=== PATIENT | female | born 1970 | race Caucasian/White ===

== ENCOUNTER 2022-07-19 07:40 | Outpatient (CLI) | payer OTHER, SELFPAY | END 2022-07-19 07:41 | disposition home or self-care (01) | LOC: FRMREF 07-23 13:53 | PROVIDERS: PCP Family Medicine; Visit Provider Family Medicine | DX: R30.0 Dysuria (principal); N39.0 Urinary tract infection, site not specified | CPT/HCPCS: 87086; 87186 ==

== ENCOUNTER 2022-11-08 08:59 | Outpatient (CLI) | payer OTHER, SELFPAY ==
--- NOTE | 2022-11-08 09:15 | CRLHL7_ITS ---
For Patients: As a result of the Century Cures Act, medical imaging exams and procedure reports are released immediately into your electronic medical record. You may view this report before your referring provider. If you have questions, please contact your health care provider. BILATERAL SCREENING MAMMOGRAM WITH COMPUTER-AIDED DETECTION AND TOMOSYNTHESIS TECHNIQUE: CC and MLO views were obtained. These mammographic images have been obtained using full-field digital technique. These mammographic images were interpreted with the benefit of computer-aided detection. Breast Tomosynthesis was used in this interpretation. COMPARISON FILM: 10/09/21, 08/29/20, 02/20/19. FINDINGS: The breasts are heterogeneously dense, which may obscure small masses IMPRESSION: There is no radiographic evidence for malignancy. ASSESSMENT: BI-RADS Category 1: Negative RECOMMENDATION: Routine screening mammogram in 1 year. A lay language report of this examination will be provided to the patient. Daniel Lind M.D. Diagnostic Radiologist [email or web address] ALLIE/Dictated by: Daniel Lind MD @ 11/08/2022 11:51:00 AM (Electronically Signed)
== END 2022-11-08 09:00 | disposition home or self-care (01) ==
LOC: MAMMO 08:59
PROVIDERS: PCP Family Medicine; Visit Provider Family Medicine
DX: Z12.31 Encounter for screening mammogram for malignant neoplasm of breast (principal); R92.2 Inconclusive mammogram
CPT/HCPCS: 77063; 77067

== ENCOUNTER 2023-11-18 09:01 | Outpatient (CLI) | payer OTHER, SELFPAY ==
--- NOTE | 2023-11-18 09:15 | CRLHL7_ITS ---
For Patients: As a result of the Century Cures Act, medical imaging exams and procedure reports are released immediately into your electronic medical record. You may view this report before your referring provider. If you have questions, please contact your health care provider. BILATERAL SCREENING MAMMOGRAM WITH COMPUTER-AIDED DETECTION AND TOMOSYNTHESIS TECHNIQUE: CC and MLO views were obtained. These mammographic images have been obtained using full-field digital technique. These mammographic images were interpreted with the benefit of computer-aided detection. Breast Tomosynthesis was used in this interpretation. COMPARISON FILM: 11/08/2022, 10/09/2021, 08/29/2020. FINDINGS: There are scattered areas of fibroglandular density. IMPRESSION: There is no radiographic evidence for malignancy. ASSESSMENT: BI-RADS Category 2: Benign RECOMMENDATION: Routine screening mammogram in 1 year. A lay language report of this examination will be provided to the patient. Daniel Lind M.D. Diagnostic Radiologist [email or web address] SP/Dictated by: Daniel Lind MD @ 11/18/2023 11:57:00 AM (Electronically Signed)
== END 2023-11-18 09:02 | disposition home or self-care (01) ==
LOC: MAMMO 09:04
PROVIDERS: PCP Family Medicine; Visit Provider Family Medicine
DX: Z12.31 Encounter for screening mammogram for malignant neoplasm of breast (principal)
CPT/HCPCS: 77063; 77067

== ENCOUNTER 2024-04-18 08:30 | Outpatient (CLI) | payer OTHER, SELFPAY | END 2024-04-18 08:31 | disposition home or self-care (01) | LOC: NFLDREF 04-20 11:25 | PROVIDERS: PCP Physician Assistant Medical; Referring Provider Physician Assistant Medical; Visit Provider Physician Assistant Medical | DX: Z00.00 Encounter for general adult medical examination without abnormal findings (principal); Z13.29 Encounter for screening for other suspected endocrine disorder; Z13.6 Encounter for screening for cardiovascular disorders; Z13.1 Encounter for screening for diabetes mellitus; Z13.9 Encounter for screening, unspecified | CPT/HCPCS: 80053; 80061; 84443 ==

== ENCOUNTER 2024-05-10 09:55 | Outpatient (CLI) | payer OTHER, SELFPAY ==
--- NOTE | 2024-05-10 10:21 | W.ANESCHARGE ---
Anesthesia Charges Start Date/Time Anesthesia Start Date: 05/10/24 Anesthesia Start Time: 10:42 Stop Date/Time Anesthesia Stop Date: 05/10/24 Anesthesia Stop Time: 11:30
--- NOTE | 2024-05-10 11:33 | W.ANESCHARGE ---
Anesthesia Charges Start Date/Time Anesthesia Start Date: 05/10/24 Anesthesia Start Time: 10:42 Stop Date/Time Anesthesia Stop Date: 05/10/24 Anesthesia Stop Time: 11:30
== END 2024-05-10 09:56 | disposition home or self-care (01) ==
LOC: OP CLINIC 09:55
PROVIDERS: PCP Physician Assistant Medical; Visit Provider Surgery
DX: Z12.11 Encounter for screening for malignant neoplasm of colon (principal); K63.5 Polyp of colon; Z83.719 Family history of colon polyps, unspecified
CPT/HCPCS: 00811; 45381; 45385; 88305; J2704

== ENCOUNTER 2024-11-22 09:45 | Outpatient (CLI) | payer OTHER, SELFPAY ==
--- NOTE | 2024-11-22 10:15 | CRLHL7_ITS ---
For Patients: As a result of the Cures Act, medical imaging exams and procedure reports are released immediately into your electronic medical record. You may view this report before your referring provider. If you have questions, please contact your health care provider. BILATERAL SCREENING MAMMOGRAM WITH COMPUTER-AIDED DETECTION AND TOMOSYNTHESIS TECHNIQUE: CC and MLO views were obtained. These mammographic images have been obtained using full-field digital technique. These mammographic images were interpreted with the benefit of computer-aided detection. Breast Tomosynthesis was used in this interpretation. COMPARISON FILM: 11/18/23, 10/09/21, 08/29/20. FINDINGS: There are scattered areas of fibroglandular density IMPRESSION: There is no radiographic evidence for malignancy. ASSESSMENT: BI-RADS Category 2: Benign RECOMMENDATION: Routine screening mammogram in 1 year. A lay language report of this examination will be provided to the patient. Daniel Lind M.D. Diagnostic Radiologist [email or web address] RENETTA/omkar / bM/Dictated by: Daniel Lind MD @ 11/22/2024 11:17:00 AM (Electronically Signed)
== END 2024-11-22 09:46 | disposition home or self-care (01) ==
PROVIDERS: PCP Nurse Practitioner; Visit Provider Physician Assistant Medical
DX: Z12.31 Encounter for screening mammogram for malignant neoplasm of breast (principal)
CPT/HCPCS: 77063; 77067

== ENCOUNTER 2025-04-11 08:35 | Outpatient (CLI) | payer OTHER, SELFPAY ==
--- OUTSIDE RECORDS SUMMARY | 2025-03-11 09:15 | XMS_ITS ---
Author Organization [facility] Address [address] [place] [address] Care Team Providers Care Road Consultant Name Role Phone None, No PCP Primary Care Provider Jeronimo Ferguson [phone] Results Component Value Reference Range Notes FSH (IH) Reviewed date:03/12/2025 01:27:51 PM Interpretation: Performing Lab: Notes/Report: Access 2 ([id number]) [facility] hFSH 47.7 1.8 to 22.5 mIU/mL H Testosterone, Total (IH) Reviewed date:03/12/2025 01:27:51 PM Interpretation: Performing Lab: Notes/Report: Access 2 ([id number]) [facility] Testo 59 0-75 ng/dL Sensitive Estradiol (IH) Reviewed date:03/12/2025 01:27:51 PM Interpretation: Performing Lab: Notes/Report: Access 2 ([id number]) [facility] SNSE2 33 20 to 433 pg/mL REASON FOR VISIT IH HRT Labs Medications Medication SIG (Take, Route, Fr equency, Duration) Notes Start Date End Date Status Magnesium Active Melatonin 5 MG 1 tablet in the even ing Orally Once a day Active Collagen Active Estradiol 1 MG 1 tablet Orally Once a day for 90 days 02/01/2025 Active Progesterone 100 MG 1 capsule at bedtime Orally Once a day for 90 days 02/01/2025 Active Encounters Encounter Location Date Provider Diagnosis [facility] [address] [place] [phone] 03/11/2025 Jeronimo Steven Menopausal and femal e climacteric states N95.1 Assessments Encounter Date Diagnosis (ICD Code) Assessment Notes Treatment Notes Treatment Clinical Notes Section Notes 03/11/2025 Menopausal and female climacteric states (ICD-10 - N95.1) Plan Of Treatment Next Appt Details Provider Name:Jeronimo Steven, 09/26/2025 02:15:00 PM, [address], [place], [address], Provider Name:Jeronimo Steven, 10/03/2025 03:00:00 PM, [address] [place], [address], Progress Notes * Maria Antonia GUPTA DDOB: [birth year] (54 yo F)Acc No.[id number]:03/11/2025 Patient: Payton JOHNMaria Antonia Gulshan Provider: IVONE Metzger :1970 A ge:54 Y S ex:Female Date:03/11/2025 Address:[address] [place], [place] [id number] Pcp:No PCP None Subjective: * Chief Complaints: * 1 . IH HRT Labs. * Medical History: * Medications: T aking Magnesium , Taking Melatonin 5 MG Tablet 1 tablet in the evening Orally Once a day , Taking Collagen , Taking Estradiol 1 MG Tablet 1 tablet Orally Once a day , Taking Progesterone 100 MG Capsule 1 capsule at bedtime Orally Once a day Objective: * Vitals: Assessment: * Assessment: 1. M enopausal and female climacteric states - N95.1 (Primary) Plan: * Treatment: Value Reference Range T estosterone, Total (IH) 59 0-75 - ng/dL * Here are your lab results fo r your upcoming visit. See you then. Jeronimo Steven 03/12/2025 01:27:48 PM CDT > ?LAB: Sensitive Estradiol (IH) (Collection Date & Time - 03/12/2025 01:03 PM)* Value Reference Range S NSE2 33 20 to 433 - pg/mL * Here are your lab results fo r your upcoming visit. See you then. Jeronimo Steven 03/12/2025 01:27:48 PM CDT > ?LAB: FSH (IH) (Collection Date & Time - 03/12/2025 01:07 PM)* Value Reference Range h FSH 47.7 A 1.8 to 22.5 - mIU/mL * Here are your lab results fo r your upcoming visit. See you then. Jeronimo Steven 03/12/2025 01:27:48 PM CDT > * Procedure Codes: 8 2670 ASSAY OF ESTRADIOL - IH, 00426 GONADOTROPIN (FSH) - IH, 70945 ASSAY OF TOTAL TESTOSTERONE - IH, 72176 VENIPUNCT, ROUTINE* * Images: Billing Information: * Visit Code: * Procedure Codes: 25411 ASSAY OF ESTRADIOL - IH. 75904 GONADOTROPIN (FSH) - IH. 15102 ASSAY OF TOTAL TESTOSTERONE - IH. 93696 VENIPUNCT, ROUTINE*. * Sign off status: Completed Addendum: * true * Provider: IVONE Metzger Date: 0 03/11/2025 Generated for Bob pedro/Callie/Luca on: 0 04/12/2025 12:45 AM CDT
--- OUTSIDE RECORDS SUMMARY | 2025-03-21 04:45 | XMS_ITS ---
Author Organization [facility] Address [address] [place] [address] Care Team Providers Care Electromedical Service Engineer Name Role Phone None, No PCP Primary Care Provider Jeronimo Ferguson Unavailable [phone] Allergies No Known Allergies REASON FOR VISIT F/U LABS, LABS: estradiol 59, fsh 47.7, testosterone 33, HOW ARE YOU FEELING? no concerns - go overlabs only, KD,RESPITE COORDINATOR, * Medications Medication SIG (Take, Route, Frequency, Duration) Notes Start Date End Date Status Testosterone troches/lozenges at 4mg/0.5 lozenge SL daily in AM Active Melatonin 5 MG 1 tablet in the evening Orally Once a day Active Collagen Active Progesterone 200 MG 1 capsule at bedtime Orally Once a day for 90 days HOLD until pt. calls for fill of new dose 02/01/2025 Active Estradiol 2 MG 1 tablet Orally Once a day for 90 days HOLD until pt. calls for fill of new dose 02/01/2025 Active Magnesium Active Social History Tobacco Use: Social History Observation Description Date Details (start date - stop date) Never Smoker NA - NA Tobacco Control (Standard) Question Answer Notes Tobacco use: Nonsmoker Encounters Encounter Location Date Provider Diagnosis [facility] [address] [place] [address] 03/21/2025 Jeronimo Steven Menopausal and femal e climacteric states N95.1 ; Dyspareunia, female N94.10 and Vaginal dryness N89.8 Assessments Encounter Date Diagnosis (ICD Code) Assessment Notes Treatment Notes Treatment Clinical Notes Section Notes 03/21/2025 Menopausal and female climacteric states (ICD-10 - N95.1) HRT labs reviewed HRT without concerns at this time. Subtle improvements without any bothersome side effects. Desires to continue on current therapies at this time Plan to increase estradiol dose to 2mg/day with current 1mg tablets she has Plan to increase progesterone to 200mg/day with current 100mg PO caps she has Plan to increase testosterone lozenge SL dose to 6mg/day for 1-2 wks, if desired can increase to 8mg/day dose. She will need to send portal message with what dose she wants refilled. 6mg/ half lozenge or 8mg/ half lozenge Risks vs. benefits of ongoing HRT reviewed today. Contraindications to continue therapy reviewed including breast cancer, VTE, CVA, and/or DE. Mammogram annually is recommended for ongoing therapy. Mammogram up to date Plan repeat labs (estradiol, FSH, total testosterone) and HRT follow up in 6 months, sooner if any concerns. 03/21/2025 Dyspareunia, female (ICD-10 - N94.10) 03/21/2025 Vaginal dryness (ICD-10 - N89.8) 03/21/2025 Other This visit was conducted with the use of audio and video telecommunications system that permits real time communication between the patient and provider. Patient consent for virtual visit was obtained. Originating site: [facility] location Distant site: pt in parked vehicle outside of her work Start time: 945 Stop time:956 Visit time spent in chart prep, reviewing previous notes, lab results, current HRT therapies, answering questions/concerns, and discussing ongoing therapy options, writing orders, sending prescriptions, along with time spent documenting today's visit note. Plan Of Treatment Medication Medication Name Sig Start Date Stop Date Notes Progesterone 200 MG 1 capsule at bedtime Orally Once a day for 90 days 02/01/2025 HOLD until pt. calls for fill of new dose Estradiol 2 MG 1 tablet Orally Once a day for 90 days 02/01/2025 HOLD until pt. calls for fill of new dose Treatment Notes Assessment Notes Menopausal and female climac teric states HRT labs reviewed HRT without concerns at this time. Subtle improvements without any bothersome side effects. Desires to continue on current therapies at this time Plan to increase estradiol dose to 2mg/day with current 1mg tablets she has Plan to increase progesterone to 200mg/day with current 100mg PO caps she has Plan to increase testosterone lozenge SL dose to 6mg/day for 1-2 wks, if desired can increase to 8mg/day dose. She will need to send portal message with what dose she wants refilled. 6mg/ half lozenge or 8mg/ half lozenge Risks vs. benefits of ongoing HRT reviewed today. Contraindications to continue therapy reviewed including breast cancer, VTE, CVA, and/or DE. Mammogram annually is recommended for ongoing therapy. Mammogram up to date Plan repeat labs (estradiol, FSH, total testosterone) and HRT follow up in 6 months, sooner if any concerns. Other This visit was conducted with the use of audio and video telecommunications system that permits real time communication between the patient and provider. Patient consent for virtual visit was obtained. Originating site: [facility] location Distant site: pt in parked vehicle outside of her work Start time: 945 Stop time:956 Visit time spent in chart prep, reviewing previous notes, lab results, current HRT therapies, answering questions/concerns, and discussing ongoing therapy options, writing orders, sending prescriptions, along with time spent documenting today's visit note. Next Appt Details Follow Up: 6 Months, Reason: Provider Name:Jeronimo Maurizio, 09/26/2025 02:15:00 PM, [address], [address], Provider Name:Jeronimo Steven, 10/03/2025 03:00:00 PM, [address], [address], Progress Notes * Maria Antonia GUPTA DDOB: [birth year] (54 yo F)Acc No.[id number]:03/21/2025 Patient: Payton Maria Antonia JOHN Provider: IVONE Metzger :1970 A ge:54 Y S ex:Female Date:03/21/2025 Address: [facility] Pcp:No PCP None Subjective: * Chief Complaints: * 1 . F/U LABS. 2. LABS: estradiol 59, fsh 47.7, testosterone 33. 3. HOW ARE YOU FEELING? no concerns - go over labs only. 4. KD,RESPITE COORDINATOR. 5. *. * HPI: G eneral: Patient presents today for a telemedicine visit. Patient gives permission to be treated with (tele/audio communication) or (by telephone.). * General: Maria Antonia is a 54 year old female here today for a HRT follow up. She is currently using the following HRT therapies: Estradiol 1 MG Tablet 1 tablet Orally Once a day. Progesterone 100 MG Capsule 1 capsule at bedtime Orally Once a day. compounded testosterone lozenges 4mg/half lozenge SL in AM daily Primary symptoms for initiation of HRT: mild hot flashes, vaginal dryness, low libido, brain fog, not sleeping well (never really has), low energy, painful intercourse, low libido At this time she reports she is sleeping a little better, improved vaginal dryness, less pain with intercourse, resolved hot flashes, energy and libido are still low. She denies concerns today. Denies postmenopausal bleeding on therapies. PMH reviewed, no notable concerns. LMP:08/26/23, age 53 METHOD OF CONTRACEPTION: menopause UTERUS is PRESENT: Last Pap smear date:11/2021 NIL/HPV negative plan: Pap/HPV due 11/2026 Last Mammogram date:11/22/24, benign Tobacco use:no PERSONAL HISTORY of DVT, DE, STROKE, LIVER DYSFUNCTION, OR BREAST CANCER:no FAMILY HISTORY OF BREAST CANCER: mother at age 76, paternal grandmother at age 46, 2 paternal aunts (ages 55 and 66, no BRCA gene mutation) FAMILY HISTORY OF DVT OR CVA/DE BEFORE AGE 50: no. * Medical History: C hicken pox. * Raw Sampler History: D ate of Last Period: . B irth Control: M enopause. S exual Activity C urrently sexually active. S exually Tranmitted Disease (STD) N one. D enies H/O Abnormal Pap Smear. * OB History: Rich MENDEZ G 2P2. P regnancy # 1: 2 003, normal spontaneous vaginal delivery (), Female, ROB. P regnancy # 2: 2 006, Primary , Male, Max( complications with uterus not noa, oopherectomy of right ovary due to 1lbfibroid/cyst). * Surgical History: C -section , oophorectomy of right ovary due to 1 lb fibroid/cyst , wisdom teeth . * Hospitalization/Major Diagno stic Procedure: D enies Past Hospitalization. * Family History: M other: diagnosed with Breast Cancer. M [place] Grand Mother: diagnosed with Breast Cancer. * Social History: T obacco Use: T obacco Control (Standard) T obacco use: N onsmoker D rugs/Alcohol: D rugs H ave you used drugs other than those for medical reasons in the past 12 months? No. Caffeine I ntake: 1 -2 cups per day Do you smoke marijuana?: Denies. Do you drink alcohol?: Yes. M iscellaneous: E xercise: inconsistent - Walks, gym, light weights. * Medications: T aking Testosterone , Notes to Pharmacist: troches/lozenges at 4mg/0.5 lozenge SL daily in AM, Taking Magnesium , Taking Melatonin 5 MG Tablet 1 tablet in the evening Orally Once a day , Taking Collagen , Taking Estradiol 1 MG Tablet 1 tablet Orally Once a day , Taking Progesterone 100 MG Capsule 1 capsule at bedtime Orally Once a day , Medication List reviewed and reconciled with the patient * Allergies: N .K.D.A. Objective: * Vitals: * P ast Orders: Lab:Sensitive Estradiol (IH) * Collection Date 03/12/2025 01/07/2025 Collection Time 01:03 PM 11:56 AM Order Date 03/11/2025 01/04/2025 SNSE2 33 (Ref Range: 20 to 433 pg/mL) 0 A (Ref Range: 20 to 433 pg/mL) * Lab:FSH (IH) * Collection Date 03/12/2025 01/07/2025 Collection Time 01:07 PM 11:59 AM Order Date 03/11/2025 01/04/2025 hFSH 47.7 A (Ref Range: 1.8 to 22.5 mIU/mL) 73.6 A (Ref Range: 1.8 to 22.5 mIU/mL) * Lab:Testosterone, Total (IH) * Collection Date 03/12/2025 01/07/2025 Collection Time 12:38 PM 12:02 PM Order Date 03/11/2025 01/04/2025 Testosterone, Total (IH) 59 (Ref Range: 0-75 ng/dL) 32 (Ref Range: 0-75 ng/dL) * Examination: * General Examination: PSYCH: alert, oriented, judgment and insight good. ? Assessment: * Assessment: 1. M enopausal and female climacteric states - N95.1 (Primary) 2 . D yspareunia, female - N94.10 3 . V aginal dryness - N89.8 Plan: * Treatment: 2. O thers Notes: This visit was conducted with the use of audio and video telecommunications system that permits real time communication between the patient and provider. Patient consent for virtual visit was obtained. Originating site: [facility] location Distant site: pt in parked vehicle outside of her work Start time: 945 Stop time:956 Visit time spent in chart prep, reviewing previous notes, lab results, current HRT therapies, answering questions/concerns, and discussing ongoing therapy options, writing orders, sending prescriptions, along with time spent documenting today's visit note. * Preventive Medicine: YOUR PREVENTIVE WELLNESS PLAN: B reast Cancer Screening (Mammogram): My last mammogram was done on: 0 11/24/2024 per pt C ervical Cancer Screening (Pap Smear): My last Pap smear was done on: 0 11/30/2021 O steoporosis Screening (Bone Density Measurement): My last bone density was done on: N ever, Under 65yr C olorectal Cancer Screening: Last Done Colonoscopy 0 05/10/2024 13mm polyp removed * Follow Up: 6 Months * Images: Billing Information: * Visit Code: 17401 Office Visit, Est Pt., Level 4. Modifiers: 95 * Procedure Codes: * Sign off status: Completed true * Provider: IVONE Metzger Date: 0 03/21/2025 Generated for Bob pedro/Callie/Luca on: 0 04/12/2025 12:45 AM CDT History and Physical Notes * HPI (History of Present Illness) Category Sub-Category Detail Notes Category Not es *General Maria Antonia is a 54 year old female here today for a HRT follow up. She is currently using the following HRT therapies: Estradiol 1 MG Tablet 1 tablet Orally Once a day. Progesterone 100 MG Capsule 1 capsule at bedtime Orally Once a day. compounded testosterone lozenges 4mg/half lozenge SL in AM daily Primary symptoms for initiation of HRT: mild hot flashes, vaginal dryness, low libido, brain fog, not sleeping well (never really has), low energy, painful intercourse, low libido At this time she reports she is sleeping a little better, improved vaginal dryness, less pain with intercourse, resolved hot flashes, energy and libido are still low. She denies concerns today. Denies postmenopausal bleeding on therapies. PMH reviewed, no notable concerns. LMP:08/26/23, age 53 METHOD OF CONTRACEPTION: menopause UTERUS is PRESENT: Last Pap smear date:11/2021 NIL/HPV negative plan: Pap/HPV due 11/2026 Last Mammogram date:11/22/24, benign Tobacco use:no PERSONAL HISTORY of DVT, DE, STROKE, LIVER DYSFUNCTION, OR BREAST CANCER:no FAMILY HISTORY OF BREAST CANCER: mother at age 76, paternal grandmother at age 46, 2 paternal aunts (ages 55 and 66, no BRCA gene mutation) FAMILY HISTORY OF DVT OR CVA/DE BEFORE AGE 50: no General Patient present s today for a telemedicine visit. Patient gives permission to be treated with (tele/audio communication) or (by telephone.) Examination Category Sub-Category Detail Notes Category Not es *General Examination PSYCH: alert, orie nted, judgment and insight good
--- NOTE | 2025-04-11 10:56 | P.ANES_ITS ---
Anesthesia Charges Start Date/Time Anesthesia Start Date: 04/11/25 Anesthesia Start Time: 09:31 Stop Date/Time Anesthesia Stop Date: 04/11/25 Anesthesia Stop Time: 10:52 Coding CPT Codes CPT Codes: MCKENNA LWR INTST NDOR NOS - 63138 ([id number]) P1 - NORMAL HEALTHY PATIENT, QK - EDUCATION DIAGNOSTICIAN 2-4 CNCRNT ANES PROC, QX - BRIDGE TOLL COLLECTOR SVC W/ MED DIRECTION
--- NOTE | 2025-04-11 10:56 | W.ANESCHARGE ---
Anesthesia Charges Start Date/Time Anesthesia Start Date: 04/11/25 Anesthesia Start Time: 09:31 Stop Date/Time Anesthesia Stop Date: 04/11/25 Anesthesia Stop Time: 10:52 Coding CPT Codes CPT Codes: MCKENNA LWR INTST NDIA NOS - 81889 ([id number]) P1 - NORMAL HEALTHY PATIENT, QK - TEXTILE MACHINERY INSTRUCTOR 2-4 CNCRNT ANES PROC, QX - LEDGER POSTER SVC W/ MED DIRECTION
--- NOTE | 2025-04-11 11:00 | P.ANES_ITS ---
Anesthesia Charges Start Date/Time Anesthesia Start Date: 04/11/25 Anesthesia Start Time: 09:31 Stop Date/Time Anesthesia Stop Date: 04/11/25 Anesthesia Stop Time: 10:52 Coding CPT Codes CPT Codes: ANEPayton LWR INTST NDSC NOS - 91133 ([id number]) QK - PRESERVATIVE FILLER MACHINE OPERATOR 2-4 CNCRNT ANES PROC, QX - SEEDLING SORTER SVC W/ MED DIRECTION, P1 - NORMAL HEALTHY PATIENT
--- NOTE | 2025-04-11 11:00 | W.ANESCHARGE ---
Anesthesia Charges Start Date/Time Anesthesia Start Date: 04/11/25 Anesthesia Start Time: 09:31 Stop Date/Time Anesthesia Stop Date: 04/11/25 Anesthesia Stop Time: 10:52 Coding CPT Codes CPT Codes: ANEPayton LWR INTST NDSC NOS - 72733 ([id number]) QK - FINGER COBBLER 2-4 CNCRNT ANES PROC, QX - BUSINESS STRATEGY MANAGER SVC W/ MED DIRECTION, P1 - NORMAL HEALTHY PATIENT
--- OUTSIDE RECORDS SUMMARY | 2025-04-12 00:51 | XMS_ITS | Encounter Summary ---
Author Organization [facility] Address [address] [place] [address] Care Team Providers Care Child Care Cook Name Role Phone Erinn Manzano MD Primary Care Provider [phone] Ligia Marroquin MD Unavailable [phone] Dulce Rivers MD Unavailable + Dulce Rivers MD Unavailable + Encounter Details Date Type Department Care Team (Late st Contact Info) Description 06/04/2019 [facility] [place] [facility] [address] [facility] [address] [place] [address] Dulce Rivers MD [address] [place] [address] [address] [place] [address] Social History Tobacco Use Types Packs/Day Years Used Date Smoking Tobacco: Never Smokeless Tobacco: Never Comments Unknown Sex and Gender Information Value Date Recorded Sex Assigned at Female 08/17/2019 6:39 AM CDT Legal Sex Female 3:21 AM TEST ENGINE EVALUATOR Gender Identity Female 08/17/2019 6:39 AM CDT Sexual Orientation Straight 08/17/2019 6: 39 AM CDT documented as of this encounter Plan of Treatment Not on file documented as of this encounter Visit Diagnoses Not on filedocumented in this encounter Care Teams Child Care Cook Relationship Specialty Start Date End Date Erinn Manzano MD [place] [address] [address], [place] [address] PCP - General 10/06/18 Ligia Marroquin MD DERMATOLOGY RISK CONTROL SPECIAL[place] [address] Referring Physician 10/06/18 Dulce Rivers MD [address] [place] [address] Assigned Pediatric Specialist Provider 08/15/20 11/23/20 Dulce Rivers MD [address] [address] Assigned Surgical Provider 08/15/2002/21/21 documented as of this encounter
--- OUTSIDE RECORDS SUMMARY | 2025-04-12 00:51 | XMS_ITS | Clinical Summary ---
Author Organization [facility] Address [address] [place] [id number] Care Team Providers Care Reimbursement Rep Name Role Phone Erinn Manzano MD Primary Care Provider [phone] Ligia Marroquin MD Unavailable [phone] Allergies No known active allergies Medications ASHWAGANDHA PO Activ e Multiple Vitamin (MULTI-VITAMIN PO) Active SUPER B COMPLEX/C PO Active [place]-3 Fatty Acids (FISH OIL OMEGA-3) 1000 MG CAPS Active Fexofenadine HCl (RASHEEDA PO) Take 30 mg by mouth daily Active clobetasol propionate (CLOBEX) 0.05 % external shampooIndicatio ns:Alopecia areata Use three times per week. 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 Gender Identity Female 08/17/2019 6:39 AM CDT Sexual Orientation Straight 08/17/2019 6: 39 AM CDT Last Filed Vital Signs Vital Sign Reading Time Taken Comments Blood Pressure 139/80 08/21/2019 3:34 PM CDT Pulse 89 08/21/2019 3:34 PM CDT Temperature - - Respiratory Rate - - Oxygen Saturation - - Inhaled Oxygen Concentration - - Weight - - Height - - Body Mass Index - - Plan of Treatment Not on file Care Teams Reimbursement Rep Relationship Specialty Start Date End Date Erinn Manzano MD [facility] [address] [place] [address] PCP - General 10/06/18 Ligia Marroquin MD DERMATOLOGY CHIEF NURSE ANESTHETIST [place] [address] Referring Physician 10/06/18
--- OUTSIDE RECORDS SUMMARY | 2025-04-12 00:51 | XMS_ITS | Patient Health Record ---
Author Organization [facility] Address [address] [place] [address] Care Team Providers Care Network Management Specialist Name Role Phone None, No PCP Primary Care Provider Jeronimo Ferguson [phone] Allergies No Known Allergies Results Component Value Reference Range Notes FSH (IH) Reviewed date:03/12/2025 01:27:51 PM Interpretation: Performing Lab: Notes/Report: Access 2 ([id number]), [facility] - [facility] hFSH 47.7 1.8 to 22.5 mIU/mL H Testosterone, Total (IH) Reviewed date:03/12/2025 01:27:51 PM Interpretation: Performing Lab: Notes/Report: Access 2 ([id number]), [facility] - [facility] Testo 59 0-75 ng/dL Sensitive Estradiol (IH) Reviewed date:03/12/2025 01:27:51 PM Interpretation: Performing Lab: Notes/Report: Access 2 ([id number]), [facility] - Lab SNSE2 33 20 to 433 pg/mL Testosterone, Free (IH) Reviewed date:01/08/2025 01:38:34 PM Interpretation: Performing Lab: Notes/Report: Access 2 ([id number]), [facility] - [facility] Fr Testo 1.28 0.20 to 5.50 pg/mL Sensitive Estradiol (IH) Reviewed date:01/08/2025 01:38:34 PM Interpretation: Performing Lab: Notes/Report: Access 2 ([id number]), [facility] - Lab SNSE2 0 20 to 433 pg/mL L Sex Hormone Binding Globulin (IH) Reviewed date:01/08/2025 01:38:34 PM Interpretation: Performing Lab: Notes/Report: Access 2 ([id number]), [facility] - [facility] SHBG 88 16-126 nmol/L Testosterone, Total (IH) Reviewed date:01/08/2025 01:38:34 PM Interpretation: Performing Lab: Notes/Report: Access 2 ([id number]), [facility] Testo 32 0-75 ng/dL LH (IH) Reviewed date:01/08/2025 01:38:34 PM Interpretation: Performing Lab: Notes/Report: Access 2 ([id number]), [facility] hLH 39.9 2.1 to 103.3 mIU/mL FSH (IH) Reviewed date:01/08/2025 01:38:33 PM Interpretation: Performing Lab: Notes/Report: Access 2 ([id number]), [facility] hFSH 73.6 1.8 to 22.5 mIU/mL H Reason For Referral No Information Medications Medication SIG (Take, Route, Frequency, Duration) Notes Start Date End Date Status Testosterone troches/lozenges at 4mg/0.5 lozenge SL daily in AM Active Magnesium Active Melatonin 5 MG 1 tablet [...] for fill of new dose 02/01/2025 Active Social History Tobacco Use: Social History Observation Description Date Details (start date - stop date) Never Smoker NA - NA Tobacco Control (Standard) Question Answer Notes Tobacco use: Nonsmoker Problems Problem Type SNOMED Code ICD Code Onset Dates Problem Status W/U Status Risk Notes Problem [id number] Menopausal and female climacteric states (N95.1) Active confirmed Problem Dyspareunia, female (N94.10) Active confirmed Vital Signs Blood pressure diastolic 68 mm Hg 02/01/2025 Height 69 in 02/01/2025 Blood pressure systolic 108 mm Hg 02/01/2025 Weight 171.4 lbs 02/01/2025 BMI 25.31 kg/m2 02/01/2025 Encounters Encounter Location Date Provider Diagnosis [facility] [address] [place] [address] 02/01/2025 Jeronimo Steven Menopausal and femal e climacteric states N95.1 ; Dyspareunia, female N94.10 and Vaginal dryness N89.8 [facility] [address] [place] [address] 01/04/2025 Jeronimo Steven [facility] [address] [place] [address] [place] [id number] 03/11/2025 Jeronimo Maurizio Menopausal and femal e climacteric states N95.1 [facility] [address] [place] [address] [place] [id number] 01/04/2025 Jeronimo Maurizio Menopausal and femal e climacteric states N95.1 ; Vaginal dryness N89.8 and Dyspareunia, female N94.10 [facility] [address] [place] [address] 03/21/2025 Jeronimo Steven Menopausal and femal e climacteric states N95.1 ; Dyspareunia, female N94.10 and Vaginal dryness N89.8 [facility] [address] [place] [address] 04/02/2025 Jeronimo Steven [facility] [address] [place] [address] 02/05/2025 Jeronimo Bushdavi [facility] [address] [place] [address] 04/04/2025 Jeronimo Steven Assessments Encounter Date Diagnosis (ICD Code) Assessment Notes Treatment Notes Treatment Clinical Notes Section Notes 03/11/2025 Menopausal and female climacteric states (ICD-10 - N95.1) 03/21/2025 Menopausal and female climacteric states (ICD-10 [...] reviewed including breast cancer, VTE, CVA, and/or AR. Mammogram annually is recommended for ongoing therapy. Mammogram up to date Plan repeat labs (estradiol, FSH, total testosterone) and HRT follow up in 6 months, sooner if any concerns. 03/21/2025 Dyspareunia, female (ICD-10 - N94.10) 02/01/2025 Menopausal and female climacteric states (ICD-10 - N95.1) -HRT labs reviewed in detail today -Discussed treatment options in detail including oral estradiol, oral progesterone, Bijuva (oral estradiol/progesteron e pill), transdermal estradiol patches, transdermal compounded testosterone cream, or estradiol/testosteron e pellet preparations use of each therapy, common and rare side effects, possible benefits, frequency of use, and cost of each -Mammogram up to date -At this time desires to oral estradiol pills, oral progesterone caps for endometrial protection, and testosterone compounded sublingual troches/lozenges at 4mg/0.5 lozenge SL daily in AM -Plan for follow up in 4-6 wks for HRT labs (estradiol, FSH, total testosterone) with televisit follow up 1 week after AVS printed below: -Counseled on the use of oral estradiol tablets. Cautioned on possible side effects of therapy including breast tenderness and vaginal bleeding in women with a uterus. Rare rise for VTE/CVA/AR which is greatest the first year after initiating therapy and decreases after first year of use. No contraindications to initiating oral estradiol identified. -Counseled on need for progesterone therapy with the initiation of estradiol replacement in women who have a uterus for endometrial protection to reduce the risk for vaginal bleeding and development of abnormalities of the uterine lining. We discussed the importance of consistent daily dosing and to avoid missing/skipping doses to avoid bleeding and endometrial thickening. Common side effects including drowsiness and mood changes (improved vs. worsening mood) discussed. No allergies/sensitiviti es to peanuts reported. Recommend taking therapy at bedtime to accommodate for common side effect of drowsiness -Testosterone compounded gino/lozenge. This will be ordered through [facility] -Start with 1/2 gino (4mg) under the tongue or between gum and cheek until is disintegrates -Use in the morning -Mint flavored -Can decrease dose to 1/4 gino (2mg) if you have any bothersome symptoms including irritability, agitation, feeling jittery, increased acne, or facial hair growth before your follow up 02/01/2025 Dyspareunia, female (ICD-10 - N94.10) 01/04/2025 Menopausal and female climacteric states (ICD-10 - N95.1) -HRT Labs drawn today. Reasoning for labs discussed in detail -HRT options reviewed in detail, including oral estradiol, oral progesterone, Bijuva (oral estradiol/progesteron e pill), transdermal estradiol patches, transdermal compounded testosterone cream, or estradiol/testosteron e pellet preparations risks/benefits, common side effects, costs and dosing schedule. Most interested in prescription forms to start vs. pellet HRT -Counseled on the differences between FDA approved bio-identical hormone replacement, FDA non-hormonal therpies approved for symptoms of menopause, OTC supplements, and non-FDA approved compounded bio-idential hormone replacement. -Patient education and informed consent in HRT packet completed and signed today. -Counseled on associated increased risks for AR, CVA, VTE, and breast cancer with some forms of hormone replacement therapy. HRT could decrease associated lifetime risks, specifically with the use of bioidentical hormones including estradiol, progesterone, and/or testosterone preparations. Bioidentical hormonal therapies have not been shown to significantly increase risks for AR, CVA, VTE, and/or breast cancer, but do not guarantee prevention of developing these risks if used. termite treater helper associated risks of non-FDA approved bioidential compounded hormones are not known. Copies given of signed forms. -Discussed potential side effects of pellet therapy including fluid retention, swelling, breast tenderness, nipple sensitivity, uterine spotting, mood swings and irritability, acne, hair loss and/or hair growth. -Breast cancer screening policy reviewed and printed handout given. Mammogram up to date -Annual mammogram, clinical breast exam and SUPERVISOR CD AREA exams recommended -Plan for follow-up in next available visit to review lab results and proceed with treatment options if desired and indicated 01/04/2025 Vaginal dryness (ICD-10 - N89.8) 01/04/2025 Dyspareunia, female (ICD-10 - N94.10) 02/01/2025 Vaginal dryness (ICD-10 - N89.8) 03/21/2025 Vaginal dryness (ICD-10 - N89.8) 01/04/2025 Other -Total of 30 minutes was spent in chart prep, obtaining history, discussing concerns, recommendations for evaluation, follow up and possible management options, writing orders, and documenting visit note 02/01/2025 Other Visit time spent in chart prep, reviewing previous notes, discussing/interpreti ng lab results, discussing treatment options, providing counseling, risks vs. benefits, and use of each, writing orders, sending prescriptions and documenting visit note 03/21/2025 Other This visit was conducted with the use of audio and video telecommunications system that permits real time communication between the patient and provider. Patient consent for virtual visit was obtained. Originating site: [facility] location Distant site: pt in parked vehicle outside of her work Start time: 945 Stop time:956 Visit time spent in chart prep, reviewing previous notes, lab results, current HRT therapies, answering questions/concerns, and discussing ongoing therapy options, writing orders, sending prescriptions, along with time spent documenting today's visit note. Plan Of Treatment Next Appt Details Provider Name:Jeronimo Steven, 09/26/2025 02:15:00 PM, [address] [place], [address], Provider Name:Jeronimo Steven, 10/03/2025 03:00:00 PM, [address], [place], [address], Insurance Providers Payer Name Payer Address Payer Phone Subscriber Number Group Number Insured Name Patient Relationship to Insured Coverage Start Date Coverage End Date [facility] Commercial (Ins. Bill) [address] [address] [place], [place] [id number] Maria Antonia Gupta Self - patient is the insured Medical (General) History Medical History History ICD Code Chicken pox Surgical History Surgery Date(Month/Year) oophorectomy of right ovary due to 1 lb fibroid/cyst wisdom teeth
--- OUTSIDE RECORDS SUMMARY | 2025-04-12 00:51 | XMS_ITS | Clinical Summary ---
Author Organization [facility] Address [address] [place] [address] Care Team Providers Care Integrity Director Name Role Phone Pcp, No Primary Care Provider Unavailabl e Allergies No known active allergies Medications No known medications Active Problems Problem Noted Date Diagnosed Date Pap smear for cervical cancer screening 11/30/19 22 Overview (01/01/2022): 11/2021 NIL/HPV negative plan: Pap/HPV due 11/2026 Immunizations Immunization Administration Dates Next Due Influenza RIV4 (Age 18+ Years) PRESERV FREE 09/24 Influenza Virus, Unspecified 08/27/2005 Td (Age >=7 Years) 07/27/2006 Tdap 12/29/2016 Family History Medical History Relation Name Comments Alzheimer's disease Father Irritable bowel syndrome Mother Relation Name Status Comments Father Mother Alive Social History Tobacco Use Types Packs/Day Years Used Date Smoking Tobacco: Never Smokeless Tobacco: Never Alcohol Use Standard Drinks/Week Comments Yes 0 (1 standard drink = 0.6 oz pur e alcohol) Comments Unknown Sex and Gender Information Value Date Recorded Sex Assigned at Not on file Legal Sex Female 3:49 PM CDT Gender Identity Not on file Sexual Orientation Not on file Obstetrics History Para Term AB IAB SAB Ectopic Multiple Livin g Live Births 2 2 2 2 2 Date Outcome GA Total Labor Labor/2nd/3rd Weight Sex Type Anes PTL Sruthi A1 A5 Name Clin Term Living Term Living Last Filed Vital Signs Vital Sign Reading Time Taken Comments Blood Pressure 110/60 11/30/2021 9:47 AM BIOMETRICS SPECIALIST Pulse 74 11/30/2021 9:47 AM BIOMETRICS SPECIALIST Temperature - - Respiratory Rate - - Oxygen Saturation - - Inhaled Oxygen Concentration - - Weight 73 kg (161 lb) 11/30/2021 9:47 AM BIOMETRICS SPECIALIST Height 177.8 cm (5' 10) 11/30/2021 9:47 AM BIOMETRICS SPECIALIST Body Mass Index 23.1 11/30/2021 9:47 AM BIOMETRICS SPECIALIST Plan of Treatment Health Maintenance Due Date Last Done Comments HIV for age 15-65 1987 Hepatitis C screening for age 18-79 1990 Hepatitis B series for 19+ ( 1 of 3 - 19+ 3-dose series) 1991 Colonoscopy through age 75 2017 Mammogram for age 45-75 2017 Pneumococcal series for age 50+ (1 of 1 - PCV) 2022 Zoster (shingles) series for age 50+ (1 of 2) 2022 BMI (ht and wt on same day) for age 18+ 11/30/2022 11/30/2021 Depression screening for age 12+ 11/30/2022 11/30/19 22 COVID-19 vaccine series ( season) 2024 10/19/2021, 01/09/2021, 12/20/2020 Influenza Vaccine (Season Ended) 2025 10/15/20 19, 08/27/2005 Lipids for age 45-75 11/30/2026 11/30/2021 Pap test for age 21-65 11/30/2026 11/30/2021, 2021 Tetanus booster 12/29/2026 12/29/2016, 07/27/2006 Tdap Completed 12/29/2016 Procedures Procedure Name Priority Date/Time Associated Diagnosis Comments LIPID PANEL W REFLEX MEASURED LDL Routine 11/30/2021 10:48 AM BIOMETRICS SPECIALIST Lipid screening HPV HIGH RISK Routine 11/30/2021 10:25 AM BIOMETRICS SPECIALIST Screening for malignant neoplasm of cervix from Last 3 Months or Most Recently Relevant to Health Maintenance Results * LIPID PANEL W REFLEX MEASURED LDL (11/30/2021 10:48 AM BIOMETRICS SPECIALIST) CHOLESTEROL,TOTAL 198 100 - 199 mg/dL 11/30/2021 10:06 PM [facility] TRIGLYCERIDES 107 <150 mg/dL 11/30/2021 10:06 PM [facility] HDL CHOLESTEROL 59 >40 mg/dL 10:06 PM [facility] NON-HDL CHOLESTEROL 139 <145 mg/dl 11/30/2021 10:06 PM [facility] CHOL/HDL RATIO 3.36 <4.50 11/30/2021 10:06 PM [facility] LDL CHOLESTEROL 118 <=130 mg/dL 11/30/2021 10:06 PM [facility] VLDL CHOLESTEROL 21 <=30 mg/dL 11/30/2021 10:06 PM [facility] PROVIDER ORDERED STATUS RANDOM 11/30/2021 10:06 PM [facility] Blood BLOOD SPECIMEN / Unknown Venipuncture / Unknown 11/30/2021 10:48 AM BIOMETRICS SPECIALIST 11/30/2021 10:48 AM BIOMETRICS SPECIALIST us Aicha Hogue DO CHEMISTRY Final Resu lt [facility] [address] [place] [address], * HPV HIGH RISK (11/30/2021 10:25 AM BIOMETRICS SPECIALIST) TYPE 16 Negative Negative 12/02/2021 4:42 PM [facility] TYPE 18 Negative Negative 12/02/2021 4:42 PM BIOMETRICS SPECIALIST [facility] OTHER HIGH RISK TYPES Negative Negative 12/02/2021 4:42 PM [facility] Other (Cervical) Non-Blood / Unknown 11/30/2021 10:25 AM BIOMETRICS SPECIALIST 12/01/2021 8:44 AM BIOMETRICS SPECIALIST [facility] - 12/02/2021 4:42 PM BIOMETRICS SPECIALIST HPV types 16, 18, 31, 33, 35, 39, 45, 51, 52, 56, 58, 59, 66 and 68 DNA were undetectable or below the pre-set threshold. Methodology: Mary Cirilo 4800 HPV Test us Aicha Hogue DO MICROBIOLOGY Final Resu lt [facility] [address] [place] [address], [place] from Last 3 Months or Most Recently Relevant to Health Maintenance [facility] Care Teams Integrity Director Relationship Specialty Start Date End Date Pcp, No . PCP - General 09/05/20
== END 2025-04-11 08:36 | disposition home or self-care (01) ==
LOC: OP CLINIC 08:35
PROVIDERS: PCP Nurse Practitioner; Visit Provider Surgery
DX: Z12.11 Encounter for screening for malignant neoplasm of colon (principal); Z86.0101 Personal history of adenomatous and serrated colon polyps; D12.3 Benign neoplasm of transverse colon; D12.4 Benign neoplasm of descending colon
CPT/HCPCS: 00811; 00812; 45385; 88305; J2704